=== PATIENT | male | born 1975 ===

== ENCOUNTER 2017-08-23 06:03 | Day surgery (SDC) | payer MEDICAID ==
[2017-05-19 12:03] VITALS: BMI 36.9
--- NOTE | 2017-08-23 08:06 | CP.SDSHP ---
Same Day Surgery H & P - History Proposed Procedure: Egd Pre-Op Diagnosis: elliott's esophagus - Previous Medical/Surgical History Endocrine/Metabolic: Obesity Previous Surgical History: egd/colon - Allergies Allergies: Allergies SEASONAL Allergy (Uncoded 08/23/17 06:54) CONGESTION - Physical Exam General Appearance: nl Vital Signs: Vital Signs 08/23/17 06:40 Temperature 99 F Pulse Rate 63 Respiratory 19 Rate Blood Pressure 121/78 O2 Sat by Pulse 100 Oximetry Mental Status: Alert & Oriented x3 Neuro: WNL Heart: WNL Lungs: WNL GI: WNL - {Optional Preform as Required} Abdomen: WNL - Impression Impression: Elliott's esophagus Pt. Evaluated Today:Candidate for Anesthesia & Procedure: Yes - Date & Time Date: 08/23/17 Time: 08:06 Short Stay Discharge - Short Stay Discharge Admitting Diagnosis/Reason for Visit: ELLIOTT'S ESOPHAGUS WITHOUT DYSPLASIA Disposition: HOME/ ROUTINE Referrals: Shiv Gay DO [Primary Care Provider] -
[2017-08-23] MEDS ORDERED: Propofol 10 mg/ml Inj (20 ML) ONE ×2 (08:10)
[2017-08-23] MEDS ORDERED: Lidocaine Hydrochloride 5 ML INJ ONE (08:10)
[2017-08-23] MEDS ORDERED: Simethicone 40 mg/0.6 ml Liquid (30 ml) ONE (08:14)
[2017-08-23 08:37] VITALS: TEMP 98.2
[2017-08-23 09:15] VITALS: O2SAT 100
[2017-08-23 09:17] VITALS: BP 116/78; PULSE 61; RESP 18
== END 2017-08-23 09:30 | disposition home or self-care (01) ==
LOC: C.ENDO 06:03
PROVIDERS: ATTEND Internal Medicine
DX: K22.70 Barrett's esophagus without dysplasia (principal); K44.9 Diaphragmatic hernia without obstruction or gangrene; K20.8 Other esophagitis; K29.70 Gastritis, unspecified, without bleeding; E66.9 Obesity, unspecified; J45.909 Unspecified asthma, uncomplicated
CPT/HCPCS: 43239; 88305; 88312; J2704; J3010